=== PATIENT | female | born 1995 | race Caucasian/White ===

== ENCOUNTER 2017-01-02 18:26 | Emergency (ER) | payer OTHER ==
[~2017-01-02] VITALS: Ht 160 cm; Wt 158.8 kg
[~2017-01-02 18:26] MED LIST: AMOXICILLIN500 MG PO; AMOXIL500 MG PO; AUGMENTIN 875 M1 TAB PO; AUGMENTIN 875875 MG PO; BIRTH CONTROL1 EAC1 PO; CIPRODEX 0.3%-7.5 ML OT; CLARITIN10 MG PO; FLONASE 0.05% 121 EA NAS; MOTRIN800 MG PO; PREDNISONE20 MG PO; ROBITUSSIN AC 110 ML PO; STOMACH ULCER MED; ZITHROMAX Z PA250 MG PO; ZOFRAN ODT4 MG SL; ZYRTEC10 M1 PO; ZYRTEC10 MG PO
[2017-01-02 18:32] VITALS: BP 151/100
[2017-01-02] MEDS ORDERED: CORTISPORIN SUS10 ML OT (18:45)
== END 2017-01-02 18:54 | disposition home or self-care (01) ==
LOC: ED 18:26
DX: H60.501 Unspecified acute noninfective otitis externa, right ear (principal); R03.0 Elevated blood-pressure reading, without diagnosis of hypertension; Z79.899 Other long term (current) drug therapy

== ENCOUNTER → 2017-08-17 | Outpatient (CLI) | payer OTHER ==
[~2017-08-17] MED LIST changes: +CORTISPORIN SUS10 ML OT
== END | disposition home or self-care (01) ==
LOC: US 07:22
DX: K76.9 Liver disease, unspecified (principal); R11.0 Nausea

== ENCOUNTER → 2017-12-08 | Outpatient (CLI) | payer OTHER | END | disposition home or self-care (01) | LOC: US 07:17 | DX: K76.0 Fatty (change of) liver, not elsewhere classified (principal) ==

== ENCOUNTER → 2018-07-19 | Day surgery (SDC) | payer OTHER ==
[~2018-07-19] VITALS: Ht 162.5 cm; Wt 168.3 kg
[2018-07-19 12:19] VITALS: BP 132/49
[2018-07-19 12:50] VITALS: BP 120/58
[2018-07-19 13:05] VITALS: BP 114/45
[2018-07-19 13:20] VITALS: BP 109/58
== END | disposition home or self-care (01) ==
LOC: SDC 07-15 08:00
DX: K21.9 Gastro-esophageal reflux disease without esophagitis (principal); E66.01 Morbid (severe) obesity due to excess calories; Z68.44 Body mass index [BMI] 60.0-69.9, adult; Z79.3 Long term (current) use of hormonal contraceptives; Z82.49 Family history of ischemic heart disease and other diseases of the circulatory system; Z83.3 Family history of diabetes mellitus

== ENCOUNTER → 2019-08-03 | Outpatient (CLI) | payer OTHER | END | disposition home or self-care (01) | LOC: LAB 08:29 → US 08:30 | DX: R11.0 Nausea (principal); R10.31 Right lower quadrant pain; R10.11 Right upper quadrant pain ==

== ENCOUNTER → 2019-12-15 | Outpatient (CLI) | payer OTHER | END | disposition home or self-care (01) | LOC: US 07:19 | DX: K76.0 Fatty (change of) liver, not elsewhere classified (principal) ==

== ENCOUNTER → 2020-01-11 | Outpatient (CLI) | payer OTHER | END | disposition home or self-care (01) | LOC: RAD 12:36 | DX: J15.9 Unspecified bacterial pneumonia (principal); K76.0 Fatty (change of) liver, not elsewhere classified; E66.01 Morbid (severe) obesity due to excess calories; R53.83 Other fatigue; R05 Cough ==

== ENCOUNTER 2020-08-23 09:34 | Emergency (ER) | payer OTHER ==
[~2020-08-23] VITALS: Ht 152.4 cm; Wt 167.8 kg
[2020-08-23 09:43] VITALS: BP 162/73
[2020-08-23 10:16] LABS: BILIRUBIN Negative (Negative); BLOOD Negative (Negative); CLARITY Clear (Clear); COLOR Yellow (Yellow); GLUCOSE Negative (Negative); KETONE Negative (Negative); LEUKO ESTERASE Negative (Negative); NITRITE Negative (Negative); PH 6.5 (4.5-8.0); UROBILINOGEN 0.2 E.U./dl (0.0-1.0)
[2020-08-23 10:26] LABS: BACTERIA TRACE
[2020-08-23] MEDS ORDERED: NAPROXEN250 MG PO (10:44)
[2020-08-23] MEDS ORDERED: TYLENOL325 M1 PO (10:44)
[2020-08-23] MEDS ORDERED: CYCLOBENZAPRINE10 MG PO (10:44)
== END 2020-08-23 10:50 | disposition home or self-care (01) ==
LOC: ED 09:34
PROVIDERS: Emergency Medicine
DX: M54.5 Low back pain (principal)

== ENCOUNTER → 2020-09-13 | Outpatient (CLI) | payer OTHER ==
[~2020-09-13] MED LIST changes: +CYCLOBENZAPRINE10 MG PO; +NAPROXEN250 MG PO; +TYLENOL325 M1 PO
== END | disposition home or self-care (01) ==
LOC: RAD 11:42
PROVIDERS: ATTEND Nurse Practitioner Family
DX: M54.42 Lumbago with sciatica, left side (principal); G89.29 Other chronic pain